=== PATIENT | male | born 1955 | race African-American/Black ===

== ENCOUNTER 2018-01-21 06:55 | Inpatient (IN) ==
[2018-01-21 07:55] LABS: Basophils % 0.2 % (0.0-0.8); Hematocrit 27.8 VOL% (42.0-52.0); Hemoglobin 8.8 GM/DL (14.0-18.0); Immature Granulocytes % 1.2 %; Immature Granulocytes Absolute 0.14 #; Lymphocytes # 2.4 10*3/uL (1.4-4.0); Lymphocytes % 21.1 % (21.2-54.2); Mean Corpuscular HGB Conc 31.7 GM/DL (32-36); Mean Corpuscular Hemoglobin 29 PG (27-34); Mean Corpuscular Volume 91.4 FL (87-102); Mean Platelet Volume 11.5 FL (9.6-12.0); Monocytes # 0.6 10*3/uL (0.11-0.8); Neutrophils # 8.2 10*3/uL (1.4-7.4); Neutrophils % 72.5 % (38.7-73.9); Platelet Count 169 T/CUMM (130-400); Red Blood Count 3.04 MC/CUMM (3.8-5.5); Red Cell Distribution Width 14.8 % (9.3-17.3); White Blood Count 11.3 T/CUMM (4-12)
[2018-01-21 08:04] LABS: INR 1.1; PT Patient Result 11.9 SECS
[2018-01-21] MEDS: SODIUM CHLORIDE 0.9% 1,000 ML IV STA (08:10)
[2018-01-21 08:19] LABS: Calcium 7.7 MG/DL (8.5-10.1); Potassium 3.3 MMOL/L (3.5-5.1)
[2018-01-21] MEDS ORDERED: SODIUM CHLORIDE 0.9% 1,000 ML IV PRN (08:35)
[2018-01-21] MEDS ORDERED: ACETAMINOPHEN 325 MG TABLET PO PRN (09:36)
[2018-01-21] MEDS ORDERED: ONDANSETRON 4 MG/2 ML VIAL IV PRN (09:36)
[2018-01-21] MEDS ORDERED: ZALEPLON 5 MG CAPSULE PO PRN (09:36)
[2018-01-21] MEDS ORDERED: POTASSIUM CHLORIDE 20 MEQ TABLET PO ONE (09:42)
[2018-01-21] MEDS ORDERED: SILVER NITRATE STICK 1 EACH TOP ONE (10:10)
[2018-01-21] MEDS: SODIUM CHLORIDE 0.9% 1,000 ML IV SCH (11:39)
[2018-01-21] MEDS: PENICILLIN VK 500 MG TABLET PO SCH ×3 (13:01→20:16)
[2018-01-21] MEDS ORDERED: ATORVASTATIN 20 MG TABLET PO SCH (21:00)
[2018-01-22] MEDS: SODIUM CHLORIDE 0.9% 1,000 ML IV SCH ×2 (00:37→08:17)
[2018-01-22 07:07] LABS: Basophils % 0.3 % (0.0-0.8); Eosinophils % 0.3 % (0.00-10.9); Hematocrit 26.3 VOL% (42.0-52.0); Immature Granulocytes % 0.3 %; Immature Granulocytes Absolute 0.02 #; Lymphocytes # 3.1 10*3/uL (1.4-4.0); Lymphocytes % 40.3 % (21.2-54.2); Mean Corpuscular HGB Conc 34.2 GM/DL (32-36); Mean Corpuscular Hemoglobin 30 PG (27-34); Mean Platelet Volume 11.6 FL (9.6-12.0); Monocytes # 0.7 10*3/uL (0.11-0.8); Monocytes % 9.1 % (1.7-12.7); Neutrophils # 3.9 10*3/uL (1.4-7.4); Neutrophils % 49.7 % (38.7-73.9); Platelet Count 168 T/CUMM (130-400); Red Blood Count 2.99 MC/CUMM (3.8-5.5); Red Cell Distribution Width 14.8 % (9.3-17.3); White Blood Count 7.8 T/CUMM (4-12)
[2018-01-22 07:35] LABS: Bilirubin,Total 0.4 MG/DL (0.2-1.0); Total Protein 5.8 G/DL (6.4-8.3)
[2018-01-22 07:36] LABS: Osmolality,Calculated 282.4 MOS/KG (273-304); Potassium 3.9 MMOL/L (3.5-5.1)
[2018-01-22] MEDS: PENICILLIN VK 500 MG TABLET PO SCH (08:17)
[2018-01-22 08:25] VITALS: BP 125/68
[2018-01-22] MEDS ORDERED: PANTOPRAZOLE 40 MG TABLET PO SCH (09:00)
== END 2018-01-22 11:05 | disposition home or self-care (01) | DRG 982 ==
LOC: EDUNIT# → EDBD → N.ED 06:55 → N.EDINP 09:36 → SUATTDRO 09:36 → N.EDINP 10:40 → N.4E 10:57
PROVIDERS: ADMIT Family Medicine